=== PATIENT | female | born 1995 | race Caucasian/White ===

== ENCOUNTER 2020-04-27 16:32 | Emergency (ER) | payer OTHER ==
[~2020-04-27] VITALS: Ht 149.9 cm; Wt 56.7 kg
[2020-04-27 16:48] VITALS: Ht 149.9 cm; Wt 56.7 kg
[2020-04-27 18:17] LABS: BASOPHIL % 0.4 % (0-2); PLATELET COUNT 203 x10^3mcL (130-400); RED CELL DISTRIBUTION WIDTH 13.2 % (11.5-14.5)
[2020-04-27 19:50] VITALS: BP 105/58
== END 2020-04-27 19:50 | disposition home or self-care (01) ==
LOC: ED 16:32
PROVIDERS: Emergency Medicine
DX: K60.2 Anal fissure, unspecified (principal); O26.891 Other specified pregnancy related conditions, first trimester; Z3A.10 10 weeks gestation of pregnancy